=== PATIENT | male | born 1945 | race Caucasian/White ===

== ENCOUNTER → 2018-08-20 16:07 | Outpatient (CLI) | payer MEDICARE, OTHER, SELFPAY ==
--- NOTE | 2018-08-20 10:22 | COLBX_PTH ---
PATIENT: ALONSO CEJA LOC: [facility] U#:[id number] AGE/SX: 79/M ROOM: RE08/20/[address]: Dr. Cortez Murphy MD : 1945 BED: DIS: SPEC #: [id number] RECD: 08/20/18 15:38 STATUS: KAYE LINDSAY #: [id number] DAVID: 08/20/18 10:[address]: Cortez Murphy DEPT: SURGICAL PATHOLOGY RECD BY: Reddy Mcarthur ENTERED: 08/23/18 08:50 SP TYPE: COLON BX OTHR DR: MARIAM Tissues: A - COLON BIOPSY B - COLON BIOPSY C - POLYP Procedures: Surgery Specimen Level IV HEADER OPERATION: Colonoscopy with biopsy PRE-OP DIAGNOSIS: History of ulcerative colitis TISSUE SUBMITTED: A. Biopsy right colon, rule out ulcerative colitis and dysplasia, B. Biopsy left colon, rule out ulcerative colitis and dysplasia, C. Polypectomy at hepatic flexure, rule out adenoma MICROSCOPIC DIAGNOSIS A. Right colon, biopsy: Mild architectural change. No evidence of colitis. B. Left colon, biopsy: Chronic active colitis pattern of injury with minimal activity. No evidence of dysplasia. Fragments of hyperplastic polyp. See microscopic description and comment. C. Colon at hepatic flexure, biopsy: Fragments of hyperplastic polyp. AM:ninfa 08/24/18 COMMENT B. Clinical correlation is suggested. MICROSCOPIC DESCRIPTION Slides are reviewed. B. Very focal cryptitis and crypt abscess is seen. Sections show distortion of glandular architecture with expansion of lamina propria by chronic inflammatory cells. Fissure ulcers are not seen and dysplastic changes are not present. GROSS DESCRIPTION A - Received in fixative is one container labeled with the patient's name and designated right colon. The specimen consists of multiple irregular fragments of light navarro soft tissue that in aggregate measure 1 x 0.5 x 0.1 cm. The specimen is totally submitted in one cassette. B - Received in fixative is one container labeled with the patient's name and designated left colon biopsy. The specimen consists of multiple irregular fragments of light navarro soft tissue that in aggregate measure 2 x 0.6 x 0.1 cm. The specimen is totally submitted in one cassette. C - Received in fixative is one container labeled with the patient's name and designated hepatic flexure polyp. The specimen consists of multiple irregular fragments of light navarro soft tissue that in aggregate measure 0.7 x 0.5 x 0.2 cm. The specimen is totally submitted in one cassette. / AM:ninfa 08/23/18 TC:2 CPT: 24691 x3
== END ==
PROVIDERS: Referring Provider Internal Medicine Gastroenterology; Visit Provider Internal Medicine Gastroenterology
DX: Z87.19 Personal history of other diseases of the digestive system (principal)
CPT/HCPCS: 88305

== ENCOUNTER → 2021-10-21 | Outpatient (CLI) | payer MEDICARE, OTHER, SELFPAY ==
--- NOTE | 2021-10-21 | IMM_PTH ---
PATIENT: ALONSO CEJA LOC: [facility] U#:[id number] AGE/SX: 76/M ROOM: RE10/21/[address]: Dr. Ash Carpenter MD : 1945 BED: DIS: 10/21/2021 SPEC #: [id number] RECD: 10/23/21 12:40 STATUS: KAYE RECitlali #: [id number] DAVID: 10/21/21 00:[address]: Ash Carpenter DEPT: IMMUNOHISTOCHEMISTRY RECD BY: Heavenly Yi Tissues: C - PROSTATE RIGHT Procedures: P40 (add) 34BE12 (initial) PHYSICIAN & INSTITUTION [place] [id number] SPECIMEN INFORMATION: Tissue Source: C - Right prostate, base, core biopsy Clinical Info: Elevated PSA Specimen Number: [id number] CPT code: 69460, 69712 METHODOLOGY: Deparaffinized sections of prefer/formalin-fixed tissue or PAP/DQ stained slides are incubated with monoclonal/polyclonal antibodies/oligonucleotide probes. Localization is made via biotin free immunoperoxidase method. Appropriate controls are performed and reacted as expected. Results on target cell population are indicated in the following table: RESULTS: ANTIBODY / CLONE RESULT Block C P40 (BC28) negative 34BE12 (34BE12) negative These tests were developed and their performance characteristics determined by [facility]. They may not have been cleared or approved by the U.S. Food and Drug Administration. The FDA has determined that such clearance or approval is not necessary. The above immunohistochemical/dualISH markers are ordered and reviewed by the Pathologist. INTERPRETATION: C. Right prostate, base, core biopsy: Adenocarcinoma. HERON:ninfa 10/24/2021
--- NOTE | 2021-10-21 | PROSBIL_PTH ---
PATIENT: ALONSO CEJA LOC: [facility]#:[id number] AGE/SX: 76/M ROOM: RE10/21/[address]: Dr. Ash Carpenter MD : 1945 BED: DIS: 10/21/2021 SPEC #: [id number] RECD: 10/21/21 16:22 STATUS: KAYE MONTOYA #: [id number] DAVID: 10/21/21 00:[address]: Ash Carpenter DEPT: SURGICAL PATHOLOGY RECD BY: Damion Oviedo Tissues: A - PROSTATE RIGHT B - PROSTATE RIGHT C - PROSTATE RIGHT D - PROSTATE LEFT E - PROSTATE LEFT F - PROSTATE LEFT Procedures: PROSTATE BX HEADER OPERATION: Prostate biopsy PRE-OP DIAGNOSIS: Elevated PSA TISSUE SUBMITTED: A - Right apex, B - Right mid, C - Right base, D - Left apex, E - Left mid, F - Left base MICROSCOPIC DIAGNOSIS A. Right prostate, apex, core biopsy: Prostatic adenocarcinoma. Esdras grade: 3+3=6 Number of cores involved: 2/2 Proportion of tissue involved: ~40% Perineural invasion: Not identified. Greatest tumor length: 0.7 cm, discontinuous Focal high-grade prostatic intraepithelial neoplasia (HGPIN). Focal chronic inflammation. B. Right prostate, mid, core biopsy: Prostatic adenocarcinoma. Plummer grade: 3+3=6 Number of cores involved: 2/2 Proportion of tissue involved: ~15-20% Perineural invasion: Not identified. Greatest tumor length: 0.3 cm Focal chronic inflammation and basal cell hyperplasia. C. Right prostate, base, core biopsy: Prostatic adenocarcinoma. Plummer grade: 3+3=6 Number of cores involved: 2/2 Proportion of tissue involved: ~5% Perineural invasion: Not identified. Greatest tumor length: 0.4 cm, discontinuous See comment. D. Left prostate, apex, core biopsy: Focal high-grade prostatic intraepithelial neoplasia (HGPIN). E. Left prostate, mid, core biopsy: Focal high-grade prostatic intraepithelial neoplasia (HGPIN). F. Left prostate, base, core biopsy: Focal high-grade prostatic intraepithelial neoplasia (HGPIN). SJ:ninfa 10/23/2021 COMMENT C. Immunohistochemistry ([id number]) supports the above diagnosis. Case has been reviewed in consultation with Dr. Dickson who concurs with the above diagnosis. IDC:AM MICROSCOPIC DESCRIPTION Slides are reviewed. GROSS DESCRIPTION A - Received is one container designated prostate, right apex. The specimen consists of two elongated fragments of light navarro-white soft tissue measuring 1 and 1.5 cm in length and 0.1 cm in diameter. The specimen is totally submitted in one cassette. B - Received is one container designated prostate, right mid. The specimen consists of two elongated fragments of light navarro-white soft tissue each measuring 1.5 cm in length and 0.1 cm in diameter. The specimen is totally submitted in one cassette. C - Received is one container designated prostate, right base. The specimen consists of two elongated fragments of light navarro-white soft tissue measuring 1 and 1.5 cm in length and 0.1 cm in diameter. The specimen is totally submitted in one cassette. D - Received is one container designated prostate, left apex. The specimen consists of two elongated fragments of light navarro-white soft tissue measuring 0.5 and 0.9 cm in length and 0.1 cm in diameter. The specimen is totally submitted in one cassette. E - Received is one container designated prostate, left mid. The specimen consists of two elongated fragments of light navarro-white soft tissue measuring 0.8 and 1.5 cm in length and 0.1 cm in diameter. The specimen is totally submitted in one cassette. F - Received is one container designated prostate, left base. The specimen consists of two elongated fragments of light navarro-white soft tissue each measuring 1.2 cm in length and 0.1 cm in diameter. The specimen is totally submitted in one cassette. / SJ:rg 10/22/2021 TC:0 CPT: G0146
== END | disposition home or self-care (01) ==
LOC: LABSPEC 16:26
PROVIDERS: Referring Provider Urology; Visit Provider Urology
DX: R97.20 Elevated prostate specific antigen [PSA] (principal)
CPT/HCPCS: 88305; 88341; 88342; G0416

== ENCOUNTER 2021-12-13 13:04 | Observation (INO) | payer MEDICARE, OTHER, SELFPAY ==
[2021-12-03 12:01] LABS: Hematocrit 46.8 % (40-54); Mean Corp Hgb Conc 32.1 g/dL (32-36); Mean Corpuscular Hgb 27.9 pg (27.0-32.0); Mean Corpuscular Volume 87.2 fL (80-94); Mean Platelet Vol. 10.4 fl (6.2-12.0); Platelet Count 234 K/mm3 (150-450); RBC Distribution Width CV 14.6 % (11.6-14.6); RBC Distribution Width SD 46.5 fl (35.1-43.9); Red Blood Count 5.37 M/mm3 (4.6-6.2); White Blood Count 7.2 K/mm3 (4.4-11.0)
--- NOTE | 2021-12-03 12:16 | EKG12_ITS ---
Test Reason : PRE OP Blood Pressure : / mmHG Vent. Rate : 072 BPM Atrial Rate : 072 BPM P-R Int : 156 ms QRS Dur : 102 ms QT Int : 394 ms P-R-T Axes : 045 000 032 degrees QTc Int : 431 ms Normal sinus rhythm Incomplete right bundle branch block Confirmed by JEFF SHRESTHA, DAVE ([id number]), staff editor RHONDA RIVERS ([id number]) on 12/04/2021 8:40:45 AM Referred By: Ash Carpenter Confirmed By:DAVE AGUILAR MD
[2021-12-13] VITALS (14 sets, daily range): BP systolic 111–164; BP diastolic 78–94; PULSE 72–102; RESP 12–18; TEMP 36.2–37.2; O2SAT 93–99; BMI 29.6
[2021-12-13] MEDS: Lactated Ringers 1,000 ML 15 ML IV (06:15)
--- NOTE | 2021-12-13 07:30 | PROST_PTH ---
PATIENT: ALONSO CEJA LOC: [facility] U#:[id number] AGE/SX: 76/M ROOM: OH312 RE12/13/[address]: Dr. Ash Carpenter MD : 1945 BED: 1 DIS: 12/14/2021 SPEC #: [id number] RECD: 12/13/21 13:47 STATUS: KAYE MONTOYA #: [id number] DAVID: 12/13/21 07:[address]: Ash Carpenter DEPT: SURGICAL PATHOLOGY RECD BY: Cathi Sutton ENTERED: 12/16/21 09:04 SP TYPE: PROSTATE OTHR DR: Dr. Varun Martins, DO Tissues: A - Lymph node of pelvis, NOS B - Prostate, NOS Procedures: Surgery Specimen Level IV Surgery Specimen Level HEADER OPERATION: Lap robotic radical prostatectomy with nerve sparing PRE-OP DIAGNOSIS: Prostate cancer TISSUE SUBMITTED: A ? Right and left pelvic lymph nodes, B - Prostate MICROSCOPIC DIAGNOSIS A. Right and left pelvic lymph nodes, biopsy: Adipose tissue, negative for carcinoma. See comment. B. Prostate, radical prostatectomy: Prostatic adenocarcinoma. Please see cancer summary in the comment section. AM:ninfa 12/17/2021 COMMENT A. No lymph node tissue is identified in the specimen. The entire specimen is examined. B. PROSTATE CANCER (RADICAL) SUMMARY: Procedure: Radical Prostatectomy Prostate Size: Weight: 46 gm Size: 5 cm transversely, 3 cm anterior-posteriorly and 4 cm craniocaudally Histologic Grade: Grade group 2 ([place] score 3 + 4=7) Tumor Quantitation: Estimated percentage of prostate involved by tumor: ~20% Tumor size: Tumor involves both right and left lobes apical, mid and basal portion of prostate. The tumor is predominantly present in the right lobe. The tumor is present in discontinuous manner in the left lobe. The largest focus of tumor in the right lobe measures 1.5 x 1.5 cm (measured microscopically). The largest focus of tumor in the left lobe measures 0.9 x 0.5 cm (measured microscopically). Extraprostatic Extension: Not identified Urinary Bladder Neck Invasion: Not identified Seminal Vesicle Invasion: Not identified Lymphvascular Invasion: Not identified Perineural Invasion: Present, focal Margins: Involved by invasive carcinoma. The apical margin is positive. Area of positive margin measures 0.8 x 0.5 cm. Focality: Unifocal Esdras pattern at positive margin: Pattern 3 + 4 = 7 Treatment effect: No known presurgical therapy. Regional Lymph Nodes: No lymph nodes found. Additional Pathologic Findings: Benign prostatic hyperplasia, glandular and stromal type. - Focal high-grade prostatic intraepithelial neoplasia (HGPIN). - Focal mild chronic inflammation. PATHOLOGIC STAGE: pT2 pNx pMx The above summary is in compliance with [employer] (CAP) Cancer Protocols Checklist and [place] [employer] Committee on Cancer (AJCC), Staging Manual, 8th Ed. Please make reference to previous specimen ([id number]) right prostate, apex, mid and base, core biopsies with diagnosis of ?prostatic adenocarcinoma? and left prostate, apex, mid and base, core biopsies with diagnosis of ?focal high-grade prostatic intraepithelial neoplasia.? Case has been reviewed in consultation with Dr. Dickson who concurs with the above diagnosis. IDC:AM MICROSCOPIC DESCRIPTION Slides are reviewed. GROSS DESCRIPTION A - Received in fixative is one container labeled with the patient's name and designated right and left pelvic lymph nodes. The specimen consists of two pieces of adipose tissue measuring 3 x 2 x 0.5 cm. No obvious lymph node is identified. The entire specimen is submitted in four cassettes as follows: 1??smaller piece of tissue, 2-4 - larger piece of tissue. / SJ:rg 12/16/2021 B - Received in fixative is one container labeled with the patient's name and designated prostate. The specimen consists of a radical prostatectomy specimen consisting of prostate and bilateral seminal vesicles. The specimen weighs 46 gm. The prostate measures 5 cm transversely, 3 cm anterior-posteriorly and 4 cm craniocaudally. The right seminal vesicle measures 2.5 x 1 x 1 cm and right vas deferens measures 3.5 cm in length and 0.5 cm in diameter. The left seminal vesicle measures 3.5 x 1.5 x 1 cm and the left vas deferens measures 4 cm in length and 0.6 cm in diameter. The prostate is inked as follows: anterior surface - yellow, posterior surface - black, right lateral surface - blue, left lateral surface - green. The bilateral seminal vesicles and vas deferens are inked as follows: Posterior surface bilateral seminal vesicle and vas deferens - black, anterior surface right seminal vesicle and vas deferens - blue and anterior left seminal vesicle and vas deferens - green. Sections do not reveal any obvious mass lesions. Enrollment Clerk sections are submitted in 20 cassettes as follows: 1 - right seminal vesicle and vas deferens, 2 - left seminal vesicle and vas deferens, 3 - apical/urethral margin, enface, 4 & 5 - bladder base margin, enface, 6-10 - apical portion prostate, 11-14 - middle portion prostate, 15-20 - basal portion prostate. / SJ:rg 12/16/2021 TC:0 CPT: 24383, 80784
[2021-12-13] MEDS: Cefazolin 2 GM in 0.9% Normal Saline 100 ML IV (07:32)
--- NOTE | 2021-12-13 07:48 | PCM.HP.STD ---
HPI - General HPI Narrative ALONSO CEJA, is a 76 M who presents for radical prostatectomy history of prostate cancer with worsening disease he has high-volume Esdras 6 cancer involving the right side of the prostate planned procedure radical prostatectomy. [facility] Medical History (Updated 12/13/21 @ 07:[address] Ash Carpenter MD) Alcohol use Arthritis Barretts esophagus COPD (chronic obstructive pulmonary disease) Former smoker Gastric reflux High cholesterol History of diverticulitis History of GI bleed History of stress test Kidney stone Leg cramps Ulcerative colitis Wears dentures Wears glasses Home Medications Lactobacillus acidophilus 10 billion cell capsule (Probiotic) 10,000 mmu cells PO DAILY 12/03/21 [History Last Taken Unknown] albuterol sulfate 90 mcg/actuation aerosol inhaler 1 puff inhalation PRN PRN COPD 12/03/21 [History Last Taken Unknown] amoxicillin 500 mg capsule 500 mg PO PRN PRN DENTAL PROCEDURES 12/03/21 [History Last Taken Unknown] aspirin 81 mg capsule 81 mg PO DAILY 12/03/21 [History Last Taken 12/03/21] atorvastatin 40 mg tablet 40 mg PO DAILY 12/03/21 [History Last Taken 12/12/21] balsalazide 750 mg capsule 750 mg PO BID 12/03/21 [History Last Taken 12/11/21] chlorpheniramine 4 mg-phenylephrine 10 mg tablet 1 tab PO Q4H PRN ALLERGIES 12/03/21 [History Last Taken Unknown] ibuprofen 200 mg capsule 200 mg PO Q6H PRN PAIN 12/03/21 [History Last Taken Unknown] pygvlvplvmch-kxiyntlm-emhlgc tablet 1 tab PO DAILY 12/03/21 [History Last Taken 12/10/21] omeprazole 40 mg capsule,delayed release 40 mg PO DAILY 12/03/21 [History Last Taken 12/13/21] tiotropium bromide 18 mcg capsule with inhalation device (Spiriva with HandiHaler) 1 cap inhalation DAILY 12/03/21 [History Last Taken 12/13/21] ciprofloxacin HCl 500 mg tablet (Cipro) 500 mg PO DAILY #14 tabs 12/13/21 [Rx Last Taken Unknown] docusate sodium 100 mg capsule (Colace) 100 mg PO BID #20 caps 12/13/21 [Rx Last Taken Unknown] oxycodone-acetaminophen 5 mg-325 mg tablet 1 tab PO Q4H PRN pain 7 days #14 tabs 12/13/21 [Rx Last Taken Unknown] Allergy/AdvReac Type Severity Reaction Status Date / Time No Known Allergies Allergy Verified 12/13/21 06:33 Surgical History (Updated 12/03/21 @ 09: by Courtney Castellano) Hx of arthroscopic knee surgery Hx of colonoscopy Hx of rotator cuff surgery Hx of total knee replacement Hx of total knee replacement Social History Smoking Status: Former smoker Vital Signs Vital Signs Vital Signs: 12/13/21 06:37 12/13/21 06:37 Temperature 97.6 F L Temperature Source Temporal Pulse Rate 72 Respiratory Rate 18 Respiratory Pattern Normal Blood Pressure 124/82 H Blood Pressure Mean 96 Blood Pressure Source Monitor Blood Pressure Position Semi-Fowlers Blood Pressure Location Right Arm Pulse Ox 98 Oxygen Delivery Method Room Air Weight Weight: 99 kg Body Mass Index (BMI) 29.6 Results Lab / Micro Data Result Diagrams: 12/03/21 11:31
--- NOTE | 2021-12-13 07:49 | DCINST_ITS ---
Discharge Instructions Diet Discharge Diet: Light diet - advance as tolerated and Soft diet Activity Discharge Activity: May Not Drive Return to work on:: 01/24/22 May shower in (days): 1 Dressing / Incision Call your doctor if your incision/area has: Continuous Slow Oozing and Sudden Increased Bleeding Cleanse incision/area with: Soap & Water Catheter: Ramirez to leg bag and Ramirez to large bag Drain: [place] Follow Up Care Please Follow Up With: Ash Carpenter MD When: 2 weeks Test Results: Test results from this visit will be discussed in further detail at your follow- up appointment, if applicable. Discharge Plan Admission Primary Reason for Your Visit: Robotic radical prostatectomy Attending Provider: Ash Carpenter Primary Care Provider: Varun aMrtins Instructions Patient Instructions: Radical Prostatectomy Dc Discharge Orders/Prescriptions Prescriptions: New ciprofloxacin HCl [Cipro] 500 mg tablet 500 mg PO DAILY Qty: 14 0RF oxycodone-acetaminophen 5-325 mg tablet 1 tab PO Q4H PRN (Reason: pain) 7 Days Qty: 14 0RF docusate sodium [Colace] 100 mg capsule 100 mg PO BID Qty: 20 0RF Continued amoxicillin 500 mg capsule 500 mg PO PRN PRN (Reason: DENTAL PROCEDURES) Label Comments: 4 CAPS 1 HOUR PRIOR TO DENTAL PROCEDURE atorvastatin 40 mg tablet 40 mg PO DAILY Label Comments: TAKE 1 TABLET BY MOUTH EVERY DAY ibuprofen 200 mg Capsule 200 mg PO Q6H PRN (Reason: PAIN) omeprazole 40 mg capsule,delayed release(DR/EC) 40 mg PO DAILY Label Comments: TAKE 1 CAPSULE BY MOUTH EVERY DAY balsalazide 750 mg capsule 750 mg PO BID Label Comments: TAKE 3 CAPSULES BY MOUTH TWICE A DAY albuterol sulfate 90 mcg/actuation HFA aerosol inhaler 1 puff INHALATION PRN PRN (Reason: COPD) Label Comments: INHALE 2 PUFFS BY MOUTH EVERY 4 HOURS NEEDED FOR WHEEZING hbtfeoivvfnz-hpalsyyk-otfghe Tablet 1 tab PO DAILY Spiriva with HandiHaler 18 mcg capsule, w/inhalation device 1 cap INHALATION DAILY Label Comments: INHALE 1 CAPSULE ONCE DAILY chlorpheniramine-phenylephrine 4-10 mg Tablet 1 tab PO Q4H PRN (Reason: ALLERGIES) Probiotic 10 billion cell Capsule 10,000 mmu cells PO DAILY Held aspirin 81 mg Capsule 81 mg PO DAILY Hold Instructions: Resume on 12/27/21. Label Comments: LAST DOSE 12/05 Referrals / Follow Up: Ash Carpenter MD [Med Staff - Active Staff] - Varun Martins DO [Primary Care Provider] - Disposition Disposition (needs filled in before D/C Order can be placed): Home, Self Care
[2021-12-13] MEDS: Lubricating Jelly 60 GM Tube 30 GM (09:00)
--- NOTE | 2021-12-13 10:57 | OP.PCM_ITS ---
Report of Operation Date of Procedure: 12/13/21 Pre-Operative Diagnosis: Prostate cancer Post-Operative Diagnosis: The same Surgery/Procedure Performed:: Laparoscopic robotic assisted radical prostatectomy with pelvic lymph node dissection Description of Surgical Findings:: Patient presented to the hospital for treatment of his prostate cancer with radical prostatectomy. In the preoperative setting we discussed the options of management for his prostate cancer including active surveillance, radiation treatments, radioactive seeds, and radical robotic prostatectomy. We discussed the side effects of surgery including the potential to lose erections. We discussed the potential to have bladder control problems with stress incontinence which can be temporary or permanent. We discussed the risk of the surgery including the risk of general anesthetic, risk of bleeding, risk of infection, and risk of formation of hernia either incisional hernia or inguinal hernia. After long discussion with the patient the preoperative setting and also reviewed this in the preop area patient signed the consent form and we proceeded with a radical prostatectomy. Patient was taken back to the operating room he was identified, time out procedure was performed and he was placed supine on the table he underwent general anesthesia with intubation. The abdomen was shaved prepped and draped in usual sterile fashion as well as the penis and testicles. A 16 [place] catheter was placed into the bladder with clear return of urine. I then made an incision in the umbilicus and dissected down to the fascia advance a Veress needle into the peritoneal cavity and insufflated the peritoneal cavity with CO2 gas. I then placed a 12 mm trocar above the umbilicus. I then visualized the placement of the rest of the trochars, I placed a right arm robotic trocar, and air seal trocar, a suction port 5 mm trocar. And on the left side I placed 2 robotic arms. Once all the trochars were in placed the patient was put in steep Trendelenburg. And the robot was docked the arms were docked and then I placed the 0 degree camera through the robotic arm and also used a 30 degree camera during certain parts of the case. I used scissors in the right arm, prograsp in the third arm, and a bipolar in the second arm. Initial dissection was to free the sigmoid colon off the lateral wall this was done by meticulously dissecting off the peritoneum and the sigmoid colon off the left lateral wall. This then allowed the prograsp to retract the sigmoid colon out of the pelvis. I then went below the bladder and identified the vas deferens incised the peritoneum over the vas deferens and traced the vas deferens below the bladder to the prostate and identified the right and left vasa deferens. Below behind the vas deferens then the seminal vesicles were identified. I then dissected the seminal vesicle free using pinpoint electrocautery and then we identified the other seminal vesicle and then dissected this using pinpoint electrocautery I then elevated the vas deferens and several vesicles off the prostate and was able to sweep the Denonvilliers' fascia off the prostate posteriorly all the way up to the apex of the prostate. Working laterally I made sure I went as lateral as possible to sweep the Denonilliers' fascia off the posterior aspect of the prostate and worked my way back, I then transected the vas deferens and the left and right side the seminal vesicles were then dissected free. And then I pulled out of the pelvis. At this point the bladder was dropped creating the space of Retzius with the bladder on traction with the fourth arm. Using electrocautery I dissected in the anterior peritoneal fascia and then created the space of Retzius dissecting towards the prostate. The pelvic lymph node dissection was then performed both on the left and the right pelvic lymph nodes the nodes that were taken on the right side extended from the right iliac artery lateral pelvic sidewall up to the junction of the artery and the lymph nodes and down to the obturator nerve and then also below the high lift mule operator nerve all the lymph nodes were removed during to remove those lymph nodes we used clips and electrocautery to control small blood vessels and also the control lymphatic. I then went to the left side and again did an extensive lymph node dissection starting of the left iliac artery extending the left iliac vein on the lateral sidewall down to the obturator nerve and the left side beyond the high lift mule operator nerve down further behind it cleaning out all the lymphatic tissue all this tissue was sent off as a specimen we use clips and electrocautery during the dissection. At the end we cleaned out all the lymphatic tissue on the right pelvic wall and no lymphatic tissue in the left pelvic wall. The prostate was then cleaned of the fat over the prostate and the fourth arm was used to retract the bladder and place traction. I then identified the endopelvic fascia that was overlying the prostate on the right side I incised endopelvic fascia and wwept the levator muscles off the prostate all the way to the apex on the right side, I then worked my way anterior to the prostate then transected to the puboprostatic ligament and the underlying dorsal vein complex was not injured. I then went to the other side and identified the endopelvic fascia in the left side incised in a fashion the left side and swept the levator muscles off the prostate on the left side all the way up to the apex the puboprostatic ligament on the left side was then dissected and transected I then freed up the fascia overlying the dorsal vein complex. I then used the prograsp to encircled the dorsal vein complex with the prograsp and then switched over to the right and left needle regional intermodal truck driver and suture ligated the dorsal vein complex above the prograsp. The prograsp was then placed back in the bladder and put back on traction I then identified the junction between the bladder and the prostate and dissected down between the bladder and the prostate untilI came across the catheter we then dissected posteriorly to the bladder and prostate to free the prostate and the bladder off each other and the muscles between the bladder and the prostate was then cauterized to free up the bladder. I then went on top of the prostate and identified the endopelvic fascia on top of the prostate this was incised all the way to the apex and then we swept the endopelvic fascia off the prostate laterally and then identified the plane between endopelvic fascia and the prosthetic pseudocapsule and swept the fascia laterally until reaching the course of the neurovascular bundles and then released the neurovascular bundles off the prostate laterally all the way back in a retrograde fashion back to the junction of the pedicles then the prostate was placed on traction with the fourth arm pulling the prostate laterally identified the pedicle to the prostate between the seminal vesicles and the and the neurovascular bundle and this was taken using sequential small hemolocks. After the pedicle was taken the I then dissected underneath the prostate sweeping the neurovascular bundle off the prostate we able to follow the nice smooth plane between the neurovascular bundle and the pseudocapsule all the way to the apex once this was identified we swept this up all the way up to the apex and there was perfect nerve sparing on the right side. Then went to the left side the prostate identified the endopelvic fascia over the left side of the prostate I incised the endopelvic fascia all the way to the apex and then swept this off laterally I then released the neurovascular bundles on the left side of the prostate sweeping him off the prostate laterally I then elevated the prostate up up with the prostate and traction identified the pedicle to the prostate on the left side and then the pedicles taken with sequential Hem-o-liam clips I then was able to dissected the neurovascular bundle off the left posterior aspect the prostate this was a perfect dissection all the way up on the left side following the pseudocapsule all the way up the left side until we reached the apex of the prostate. After the both the neurovascular bundles has been swept off the posterior to the prostate I then went above and transected the dorsal vein complex there was minimal to no bleeding but then dissected down to the urethra and circumfencial dissected around the urethra I then switched the right and left arm with the needle drivers and I suture-ligated the dorsal vein complex again just to ensure that there was no bleeding from the dorsal vein complex. I then transected through the urethra with scissors and the prostate was then freed and released off the prostate bed and put an Endo Catch bag. At this point the bladder neck was reconstructed and then an anastomosis was performed between the prostate and the bladder with a 3 oh V-Loc stitch in a running fashion starting from the bladder neck at the 6 o'clock position working to the 12 o'clock position with continuous stitches to complete a perfect anastomosis between the bladder and the prostate. I then placed a new catheter into the bladder, an 18 [place] table mountain tip catheter flushed the bladder and there was no leakage from the anastomosis I put 10 cc in the balloon and pulled it up pulled back gently. I then ensured that there was no bleeding from the dorsal vein complex no bleeding from the neurovascular bundles FloSeal was placed as necessary once hemostasis was ensured and adequate then I placed the bladder back in position in the pelvis the prostate was exchanged to the camera port I closed the air seal port with a 10 12 Jim Torres stitch. And the extracted the prostate through the umbilicus. The robot was undocked all the ports were removed under direct visualization then closed the extraction site with 0 Vicryl with a CT1 needle once the extraction site was closed. I then closed all the incision with subcuticular stitches with 4-0 Monocryl and then bandages were placed on the incisions catheter was flushed to make sure it was draining well there was no clots and it was crystal clear patient's anesthetic was reversed he was extubated and taken back to the PACU in stable condition all the needles and sponges and instruments were accounted for. Blood loss was minimal and the drain was a 18 [place] Barber catheter. No other surgical drain was left. I was present during the entire case. Surgeon: Ash Carpenter Type of Anesthesia: General Drains: 20 fr barber Estimated Blood Loss (mL): 200 Admit VTE Documentation VTE Present on Admission: No VTE Mechan Device Prophylaxis: SCD's VTE Pharm Prophylaxis ordered?: No
[2021-12-13] MEDS: Tolterodine Tartrate 4 MG CAP.SA PO (12:00)
--- NOTE | 2021-12-13 12:04 | CASEMGMT ---
MEHUL CM in to discuss MARQUEZ form with patient. RN CM explained MARQUEZ form, patient voiced understanding. Pt signed form and filed in chart. Pt provided with a copy of signed MARQUEZ form. Patient had no further questions or concerns at this time.
[2021-12-13] MEDS: Ketorolac 15 MG/ML Vial IV ×3 (12:26→23:43)
[2021-12-13] MEDS: Lactated Ringers 1,000 ML 125 ML IV ×2 (12:26→20:59)
[2021-12-13] MEDS: Ciprofloxacin 400 MG/200 ML BAG 200 MG IV ×2 (14:16→20:59)
[2021-12-13] MEDS: Docusate Sodium 100 MG Capsule 200 MG PO ×2 (14:17→20:59)
[2021-12-13] MEDS: Atorvastatin Calcium 40 MG Tablet PO (20:59)
[2021-12-14 01:49] VITALS: BP 103/67; PULSE 85; RESP 16; TEMP 36.8; O2SAT 94
[2021-12-14] MEDS: Lactated Ringers 1,000 ML 125 ML IV (04:54)
[2021-12-14] MEDS: Ketorolac 15 MG/ML Vial IV (04:58)
[2021-12-14 07:12] VITALS: O2SAT 95
[2021-12-14] MEDS: Pantoprazole Sodium 40 MG Tablet PO (09:16)
[2021-12-14] MEDS: FLU VACC QS2022-23(6MOS UP)/PF 60 MCG/0.5 ML SYRINGE IM (09:17)
[2021-12-14 09:20] VITALS: BP 112/73; PULSE 69; RESP 16; TEMP 36.4; O2SAT 97
[2021-12-14] MEDS: BENZOCAINE/MENTHOL 1 LOZENGE MUCOUS MEM (09:55)
--- NOTE | 2021-12-14 10:16 | PCM.PN.GU ---
Subjective Subjective doing well after prostatectomy home today with elisabeth Objective Data Objective Data Vital Signs: Vital Signs Temp Pulse Resp BP Pulse Ox O2 Del Method O2 Flow Rate 98.2 F 85 16 103/67 95 Room Air 2 12/14/21 01:49 12/14/21 01:49 12/14/21 01:49 12/14/21 01:49 12/14/21 07:12 12/14/21 07:12 12/14/21 01:49 Oxygen Flow Rate (L/min) 2 Oxygen Delivery Method Room Air Weight: 99 kg Body Mass Index (BMI) 29.6 Intake & Output: Intake and Output for Last 24 Hours 12/12/21 12/13/21 12/14/21 23:59 23:59 23:59 Intake Total 3010 / 4010 2789.58 / 2789.58 Output Total 600 / 1050 1550 / 1550 Balance 2410 / 2960 1239.58 / 1239.58 Lab / Micro Data Result Diagrams: 12/03/21 11:31
== END 2021-12-14 12:12 | disposition home or self-care (01) ==
LOC: SDC 13:10 → MS3 13:10
PROVIDERS: Anesthesiology; Admitting Provider Urology; Referring Provider Urology; Visit Provider Urology
PROC: 0VT04ZZ Resection of Prostate, Percutaneous Endoscopic Approach (ICD-10-PCS; CPT 55866; principal; 2021-12-13 07:10)
DX: C61 Malignant neoplasm of prostate (principal); J44.9 Chronic obstructive pulmonary disease, unspecified; K51.90 Ulcerative colitis, unspecified, without complications; Z87.891 Personal history of nicotine dependence; E78.00 Pure hypercholesterolemia, unspecified; Z79.899 Other long term (current) drug therapy; Z79.82 Long term (current) use of aspirin; K21.9 Gastro-esophageal reflux disease without esophagitis; M19.90 Unspecified osteoarthritis, unspecified site; Z23 Encounter for immunization
CPT/HCPCS: 55866; 00865; 36415; 85027; 86850; 86900; 86901; 88305; 88307; 88309; 93005; 96361; 96365; 96366; 96375; 96376; 99218; 99251; G0008; J7120; 90686; A4216; G0378; G0463; J0744; J2405

== ENCOUNTER → 2022-02-04 | Outpatient (CLI) | payer MEDICARE, OTHER, SELFPAY ==
[2022-02-04 15:00] LABS: PSA,Total- Diagnostic < 0.01 ng/mL (0.0-4.0)
== END | disposition home or self-care (01) ==
LOC: LAB 13:40
PROVIDERS: Visit Provider Urology
DX: R97.20 Elevated prostate specific antigen [PSA] (principal)
CPT/HCPCS: 36415; 84153

== ENCOUNTER → 2022-05-06 | Outpatient (CLI) | payer MEDICARE, OTHER, SELFPAY ==
[2022-05-06 14:00] LABS: PSA,Total- Diagnostic < 0.01 ng/mL (0.0-4.0)
== END | disposition home or self-care (01) ==
LOC: LAB 13:09
PROVIDERS: Referring Provider Registered Nurse; Visit Provider Registered Nurse
DX: C61 Malignant neoplasm of prostate (principal)
CPT/HCPCS: 36415; 84153

== ENCOUNTER → 2022-11-04 | Outpatient (CLI) | payer MEDICARE, OTHER, SELFPAY ==
[2022-11-04 14:38] LABS: PSA,Total- Diagnostic < 0.01 ng/mL (0.0-4.0)
== END | disposition home or self-care (01) ==
LOC: LAB 13:06
PROVIDERS: Referring Provider Urology; Visit Provider Urology
DX: C61 Malignant neoplasm of prostate (principal)
CPT/HCPCS: 36415; 84153

== ENCOUNTER → 2023-05-08 | Outpatient (CLI) | payer MEDICARE, OTHER, SELFPAY ==
[2023-05-08 13:34] LABS: PSA,Total- Diagnostic < 0.01 ng/mL (0.0-4.0)
== END | disposition home or self-care (01) ==
LOC: LAB 12:54
PROVIDERS: Referring Provider Urology; Visit Provider Urology
DX: C61 Malignant neoplasm of prostate (principal)
CPT/HCPCS: 36415; 84153

== ENCOUNTER → 2023-11-03 | Outpatient (CLI) | payer MEDICARE, OTHER, SELFPAY ==
[2023-11-03 12:48] LABS: PSA,Total- Diagnostic < 0.01 ng/mL (0.0-4.0)
== END | disposition home or self-care (01) ==
LOC: LAB 11:11
PROVIDERS: Referring Provider Urology; Visit Provider Urology
DX: C61 Malignant neoplasm of prostate (principal)
CPT/HCPCS: 36415; 84153

== ENCOUNTER → 2024-05-04 | Outpatient (CLI) | payer MEDICARE, OTHER, SELFPAY ==
[2024-05-04 13:41] LABS: PSA,Total- Diagnostic < 0.01 ng/mL (0.0-4.0)
== END | disposition home or self-care (01) ==
LOC: LAB 12:26
PROVIDERS: Referring Provider Urology; Visit Provider Urology
DX: C61 Malignant neoplasm of prostate (principal)
CPT/HCPCS: 36415; 84153

== ENCOUNTER → 2024-10-24 | Outpatient (CLI) | payer MEDICARE, OTHER, SELFPAY ==
[2024-10-24 14:01] LABS: PSA,Total- Diagnostic < 0.02 ng/mL (0.00-4.00)
== END | disposition home or self-care (01) ==
LOC: LAB 12:08
PROVIDERS: Referring Provider Urology; Visit Provider Urology
DX: C61 Malignant neoplasm of prostate (principal)
CPT/HCPCS: 36415; 84153